=== PATIENT | female | born 1965 | race Caucasian/White ===

== ENCOUNTER 2019-05-25 11:56 | Outpatient (REF) | payer SELFPAY ==
[2019-05-25 12:24] LABS: Chol HDL Ratio 3.77 mg/dL (0.0-4.40); Cholesterol 230 mg/dL (0-200); Glucose 97 mg/dL (65-115); HDL Cholesterol 61 mg/dL (60-100); LDL Cholesterol Calculated 141 mg/dL (50-129); LDL HDL Ratio 2.31 RATIO (0.00-3.22); Triglycerides 139 mg/dL (0-150)
[2019-05-25 13:06] LABS: Estmated Average Glucose 126
== END 2019-05-25 11:57 | disposition home or self-care (01) ==
LOC: LAB 11:56
PROVIDERS: Family Provider Electrodiagnostic Medicine
DX: Z01.89 Encounter for other specified special examinations (principal)
CPT/HCPCS: 80061; 82947; 83036

== ENCOUNTER → 2022-02-10 11:11 | Outpatient (BNVA) | payer OTHER, SELFPAY | PROVIDERS: PCP Family Medicine; Visit Provider Family Medicine | DX: Z00.00 Encounter for general adult medical examination without abnormal findings (principal) | CPT/HCPCS: 80053; 80061; 84443; 85025 ==

== ENCOUNTER → 2022-02-11 15:59 | Outpatient (BNVA) | payer OTHER, SELFPAY | PROVIDERS: PCP Family Medicine; Visit Provider Family Medicine | DX: Z00.00 Encounter for general adult medical examination without abnormal findings (principal); E03.8 Other specified hypothyroidism | CPT/HCPCS: 84439; 84481 ==

== ENCOUNTER → 2022-03-10 16:14 | Outpatient (BNVA) | payer OTHER, SELFPAY | PROVIDERS: PCP Family Medicine; Visit Provider Family Medicine | DX: Z01.419 Encounter for gynecological examination (general) (routine) without abnormal findings (principal) | CPT/HCPCS: 87624 ==